=== PATIENT | male | born 1980 ===

== ENCOUNTER 2022-03-23 11:01 | Emergency (ER) | payer SELFPAY ==
[2022-03-23 11:21] VITALS: BP 155/94
[2022-03-23] MEDS ORDERED: NEOMY 3.5 MG/BACIT 400 UNITS/POLY B 5000 UNITS/GM OINT PACKET TP ONE (11:41)
[2022-03-23] MEDS ORDERED: TETANUS,DIPH,PERTUSS(ACELL) VACCINE 0.5 ML SYRINGE IM ONE (11:41)
[2022-03-23] MEDS ORDERED: LIDOCAINE (1%) 10 MG/1 ML VIAL 20 ML MDV INFILTRATI ONE (11:41)
[2022-03-23] MEDS ORDERED: cephALEXin 500 MG CAP PO ONE (11:41)
[2022-03-23] MEDS ORDERED: oxyCODONE /ACETAMINOPHEN 5-325MG TAB PO ONE (11:41)
[2022-03-23] MEDS ORDERED: CYCLOBENZAPRINE 10 MG TAB PO ONE (11:41)
[2022-03-23] MEDS ORDERED: IBUPROFEN 800 MG TAB PO ONE (11:41)
--- NOTE | 2022-03-23 11:42 | Emergency Department Report ---
- General Chief Complaint: Laceration/Recheck/Suture Stated Complaint: NAIL TROUGH LEFT THUMB Time Seen by Provider: 03/23/22 11:40 Source: patient Mode of arrival: Ambulatory Limitations: No Limitations - History of Present Illness Initial Comments: Patient is a 41-year-old male that comes to the emergency room after getting a nail embedded in his thumb while at work. He denies any other injury. He is accompanied by his colleague. -: Sudden Location: other Place: work Patient Tetanus UTD: No Context: accidental Associated Symptoms: none - Related Data Previous Rx's Medication Instructions Recorded Last Taken Type cephALEXin [Keflex] 500 mg PO Q12HR #20 cap 03/23/22 Unknown Rx Allergies Allergy/AdvReac Type Severity Reaction Status Date / Time No Known Allergies Allergy Verified 03/23/22 11:17 ED Review of Systems ROS: Stated complaint: NAIL TROUGH LEFT THUMB Other details as noted in HPI Comment: All other systems reviewed and negative ED Past Medical Hx - Past Medical History Previous Medical History?: No - Surgical History Past Surgical History?: No - Family History Family history: no significant - Social History Smoking Status: Never Smoker Substance Use Type: Alcohol - Medications Home Medications: Home Medications Medication Instructions Recorded Confirmed Last Taken Type cephALEXin [Keflex] 500 mg PO Q12HR #20 cap 03/23/22 Unknown Rx ED Physical Exam - General Limitations: No Limitations General appearance: alert, in no apparent distress - Head Head exam: Present: atraumatic, normocephalic - Eye Eye exam: Present: normal appearance - ENT ENT exam: Present: mucous membranes moist - Neck Neck exam: Present: normal inspection - Respiratory Respiratory exam: Present: normal lung sounds bilaterally. Absent: respiratory distress - Cardiovascular Cardiovascular Exam: Present: regular rate, normal rhythm. Absent: systolic murmur, diastolic murmur, rubs, gallop - GI/Abdominal GI/Abdominal exam: Present: soft, normal bowel sounds - Rectal Rectal exam: Present: deferred - Extremities Exam Extremities exam: Present: normal inspection - Back Exam Back exam: Present: normal inspection - Neurological Exam Neurological exam: Present: alert, oriented X3 - Psychiatric Psychiatric exam: Present: normal affect, normal mood - Skin Skin exam: Present: warm, dry, normal color, other (Nail embedded in the soft tissue of the left thumb). Absent: rash ED Course Vital Signs 03/23/22 03/23/2203/23/22 11:19 12:48 12:55 Temperature 98.6 F Pulse Rate 68 Respiratory 16 Rate Blood Pressure 155/94 [Left] O2 Sat by Pulse 97 98 97 Oximetry - Procedure Description Procedures done: Glove cut off left hand. 2% lidocaine used to anesthetize the left thumb. X-ray obtained. Applying gentle counterpressure nail was removed from the left thumb soft tissue. Patient tolerated well. - Nerve Block Consent Obtained: verbal consent Time Out Performed: Yes Local Anesthetic Used: LIDOCAINE 2% with EPI Amount of anesthesia used: 2 Side: left Nerve Blocks: other (Thumb) Procedure Successful: Yes Complications: none Patient Tolerated Procedure: well ED Medical Decision Making - Radiology Data Radiology results: report reviewed, image reviewed Foreign body in soft tissue - Medical Decision Making X-ray obtained. Digital block performed and now removed from soft tissue with thumb. Patient neurovascularly intact before and after procedure. Patient medicated for pain. Tetanus updated. Patient educated on wound care. Vital Signs 03/23/22 03/23/22 03/23/22 11:19 12:48 12:55 Temperature 98.6 F Pulse Rate 68 Respiratory 16 Rate Blood Pressure 155/94 [Left] O2 Sat by Pulse 97 98 97 Oximetry Patient being discharged home with discharge plan of care including diet, med ications, activity and follow-up. He verbalizes understanding of plan of care. - Differential Diagnosis Impalement injury -rule out fracture Critical care attestation.: If time is entered above; I have spent that time in minutes in the direct care of this critically ill patient, excluding procedure time. ED Disposition Clinical Impression: Foreign body of thumb Qualifiers: Encounter type: initial encounter Laterality: left Qualified Code(s): S60.352A - Superficial foreign body of left thumb, initial encounter Disposition: HOME / SELF CARE / HOMELESS Is pt being admited?: No Does the pt Need Aspirin: No Condition: Stable Instructions: Skin Foreign Body Additional Instructions: Keep wound clean and dry. Keep it covered when you work. [id number] Motrin or Tylenol for pain Take antibiotic until it is gone. This will prevent infection. Follow-up with PCP next week to make sure that she did not have an infection. Have given you referral below Your tetanus was updated today Prescriptions: cephALEXin [Keflex] 500 mg PO Q12HR #20 cap Referrals: HIMANSHU MONTES MD [Staff Physician] - 3-5 Days Forms: Work/School Release Form(ED) Time of Disposition: 12:25
--- NOTE | 2022-03-23 12:03 | XRay Report ---
XR hand 3+V LT INDICATION / CLINICAL INFORMATION: hand injury. COMPARISON: None available. FINDINGS: There is a radiopaque foreign body in the distal thumb with overlying casting material. Foreign demarcus s adjacent to the tip of the distal phalanx but there is no associated fracture or bone involvement. Signer Name: Mario Austin MD Signed: 03/23/2022 11:58 AM Workstation Name: [id number]
== END 2022-03-23 13:15 | disposition home or self-care (01) ==
LOC: ED 11:01
DX: S60.352A Superficial foreign body of left thumb, initial encounter (principal); X58.XXXA Exposure to other specified factors, initial encounter; Y93.9 Activity, unspecified; Y92.9 Unspecified place or not applicable; Y99.8 Other external cause status
CPT/HCPCS: 90471; 90715; 99283